=== PATIENT | male | born 1960 | race Caucasian/White ===

== ENCOUNTER 2019-05-31 12:41 | Day surgery (SDC) | payer OTHER ==
[~2019-05-31] VITALS: Ht 188 cm; Wt 102.1 kg
[2019-05-31 14:45] VITALS: BP 125/79
[2019-05-31 15:19] VITALS: BP 125/79
--- NOTE | 2019-06-14 15:34 | O ---
[facility] [place] [address] OPERATIVE REPORT Name: JEFF GONZALEZ Room #: [place] [facility] Christiano#: [id number] Admission: 05/31/19 Attend Phys: Indra Quigley Discharge: 05/31/19 Date of : 60 Report #: [id number] THIS REPORT FOR: //name// CC: Indra Nicholas Physician staff RIOS MILIAN DATE OF SERVICE: 05/31/2019 PREOPERATIVE DIAGNOSIS: Right shoulder pectoralis major tear. POSTOPERATIVE DIAGNOSIS: Right shoulder pectoralis major tear. PROCEDURE PERFORMED: Open right pectoralis major tendon repair. SURGEON: Indra Nicholas MD NAPPER TENDER: Chasity Mccann PA-C. ANESTHESIA: General with preoperative ultrasound-guided supraclavicular block. FLUIDS: 300 mL crystalloid. ESTIMATED BLOOD LOSS: Less than 25 mL. IMPLANTS UTILIZED: Arthrex pectoralis major implant repair system with three large islets. DESCRIPTION OF PROCEDURE: After proper identification of the patient and operative site in preoperative holding area, the operative site was signed by myself. Prophylactic antibiotics given. The patient elected to receive a block after reviewing the risks, benefits, alternatives and potential complications with Dr. Yoon. After satisfactory ultrasound-guided block, the patient was brought back to the operative suite after induction of satisfactory general anesthesia per LMA, Dr. Yoon noted stable airway. The head of bed was elevated slightly, arm board was utilized and a small bump was placed under the right scapula. The right shoulder and chest was then sterilely prepped and draped in usual manner. Final draping was with Ioban. A deltopectoral approach was planned and the skin was incised sharply. Full thickness skin flaps were developed and the patient's retracted end of what appeared to be primarily the sternal border of the pectoralis was able to be palpable exteriorly after the deltopectoral interval was opened. A small amount of fluid was noted and the clavipectoral fascia was then easily fall on to retracted tendon stump. There was some maceration of the edges both superiorly and inferiorly. Some tightness and retraction of the muscle belly was noted, but under direct visualization this retracted muscle belly stump was easily identified with a small tendinous [facility] [address] [place] [address] OPERATIVE REPORT Name: JEFF GONZALEZ Room #: [place] [facility] Magdi.#: [id number] Admission: 05/31/19 Attend Phys: Indra Quigley Discharge: 05/31/19 Date of : 60 Report #: [id number] portion. Three FiberTapes were passed in more of a whipstitch type manner under direct observation to secure this tear. There appeared to be a small portion of the more clavicular head, still attached to the humerus and the edge of the tendon stump was identified just lateral to the biceps tendon. Blunt retractors were used to retract the deltoid. Great care was taken to avoid any undue pressure on the neurovascular structures. Cortex and the insertion of the pectoralis major were identified. Three drill holes were then placed and the large islet buttons were then placed over the FiberTapes and positioned past the near cortex toggled and these were sequentially tightened. The arm was then adducted in internally rotated position and with sequential tightening the pectoralis major was able to be delivered down to the bone. These were then tied and then cut, nicely reducing the footprint of the sternal portion of the pectoralis major. Again, some maceration of the tendon edges was noted superiorly and inferiorly, but this appeared to be decent quality tendon as tissue for the repair. The wound was thoroughly irrigated with normal saline. The pectoralis had been restored in its anatomic position and 1 gram of vancomycin powder was utilized, half at deep, half at more superficial. Deltopectoral closure ensued with a #1 Vicryl closing the deeper tissues, 2-0 Vicryl for the more subcutaneous tissues followed by running Monocryl, sealed with Dermabond. Sterile dressing was applied. He was placed in a sling postoperatively, which will be utilized for 6 weeks. Qualified diver assistant utilized throughout the entire procedure to aid in patient limb positioning, visualization and retraction of soft tissues, instrument passage, closure and sling application. <ELECTRONICALLY SIGNED> By: Indra Nicholas MD 06/14/19 1534 [id number] 1529 Indra Nicholas MD /nt
== END 2019-05-31 16:00 | disposition home or self-care (01) ==
LOC: TBA 12:41 → OR 12:41 → TBA 12:48 → OR 16:00
DX: S46.811A Strain of other muscles, fascia and tendons at shoulder and upper arm level, right arm, initial encounter (principal); Z98.890 Other specified postprocedural states; Z85.01 Personal history of malignant neoplasm of esophagus; Z79.899 Other long term (current) drug therapy; X58.XXXA Exposure to other specified factors, initial encounter; Y93.89 Activity, other specified; Y92.89 Other specified places as the place of occurrence of the external cause; Y99.8 Other external cause status
CPT/HCPCS: 50010; 50101; 50386; 50417; 50935; 52138; 54118; 55430; 56525; 56526; 62110; 62900; 64043; 65060; 70005

== ENCOUNTER → 2020-01-19 | Day surgery (SDC) | payer OTHER ==
[~2020-01-19] VITALS: Ht 188 cm; Wt 102.1 kg
[~2020-01-19] MED LIST: ADVIL200 M1 PO; CLINDAMYCIN HC300 MG PO; DEXTROAMP-AMPHE20 MG PO; EZETIMIBE10 MG PO; FLUTICASONE PRO16 GM NASAL; GLUCOSAMINE &1 EACH PO; LEVOTHYROXINE75 MCG PO; MAGNESIUM COMPLEX; MULTIVITAMINS1 EAC7 PO; ROSUVASTATIN CA10 MG PO; TESTOSTERONE75 G1 TOP
[2020-01-19 10:40] VITALS: BP 124/74
[2020-01-19 12:26] VITALS: BP 124/74
--- NOTE | 2020-01-24 13:10 | O ---
[facility] [place] [address] OPERATIVE REPORT Name: JEFF GONZALEZ Room #: [facility] Magdi.#: [id number] Admission: 01/19/20 Attend Phys: Indra Quigley Discharge: Date of : 60 Report #: [id number] THIS REPORT FOR: cc: RIOS MILIAN Physician not on staff Indra Nicholas MD ~ CC: Indra Nicholas Physician staff RIOS MILIAN DATE OF SERVICE: 01/19/2020 PREOPERATIVE DIAGNOSES: Right shoulder pain, abscess formation, history of the pectoralis major repair. POSTOPERATIVE DIAGNOSES: Right shoulder pain, abscess formation, history of the pectoralis major repair. PROCEDURE PERFORMED: Irrigation and debridement of right shoulder abscess. SURGEON: Indra Nicholas MD PHOSPHATIC FERTILIZER SUPERVISOR: Chasity Mccann PA-C. ANESTHESIA: General. FLUIDS: 300 mL crystalloid. ESTIMATED BLOOD LOSS: 5 mL. SPECIMENS: Right shoulder abscess culture and sensitivities. DESCRIPTION OF PROCEDURE: After proper identification of the patient and operative site in preoperative holding area, the operative site was signed by myself, prophylactic antibiotics had been started in the office. We discussed the recurrent infection about his shoulder and treatment options. He wished to proceed with the above. He was brought back to the operative suite and after induction of satisfactory general anesthesia per LMA, right shoulder was sterilely prepped and draped in the usual manner. The patient noted that yesterday his abscess was opened and drained and there was a small area of opening in the skin approximately 2-3 mm with some surrounding fluctuance and firmness of the subcutaneous tissues. Otherwise, the compartments were soft. After sterile prep and drape, the previous incision was opened, friable skin tissue was debrided. Small amount of purulent fluid was able to be cultured and expressed. There is a small area that this abscess was able to be track up under the anterior deltoid. This did not appear to track medially into the [facility] [address] [place] [address] OPERATIVE REPORT Name: JEFF GONZALEZ Room #: REG [facility].#: [id number] Admission: 01/19/20 Attend Phys: Indra Quigley Discharge: Date of : 60 Report #: [id number] chest or extend more superiorly up into the shoulder. Any friable tissue was debrided sharply through the skin, subcutaneous layers down to the fascia. This area was mechanically debrided with a sponge and antibiotic irrigant with pulsatile lavage was used to thoroughly irrigate these tissues. Superior portion of the incision was left open with the inferior part closed and 1/2 inch iodoform gauze was then packed into this small cavity and remaining open part of the incision. Sterile dressing was applied. The patient was awakened and transferred to the recovery room in stable condition. We will plan on changing his packing in approximately 3 days in the office. Postoperative cultures, I will dictate his antibiotics and we reviewed the potential need to have an Infectious Disease specialist as well. <ELECTRONICALLY SIGNED> By: Indra Nicholas MD 01/24/20 1310 1156 1252 Indra Nicholas MD /nt
== END | disposition home or self-care (01) ==
LOC: OR 10:00
PROVIDERS: ATTEND Orthopaedic Surgery Sports Medicine
DX: M25.511 Pain in right shoulder (principal); M75.81 Other shoulder lesions, right shoulder; S29.011A Strain of muscle and tendon of front wall of thorax, initial encounter; Z11.59 Encounter for screening for other viral diseases; Z82.49 Family history of ischemic heart disease and other diseases of the circulatory system; Z79.899 Other long term (current) drug therapy; X58.XXXA Exposure to other specified factors, initial encounter; Y93.89 Activity, other specified; Y92.89 Other specified places as the place of occurrence of the external cause; Y99.8 Other external cause status
CPT/HCPCS: 50010; 50101; 50172; 50386; 50417; 53078; 56527; 57103; 62110; 62900; 70005

== ENCOUNTER → 2020-02-22 | Outpatient (CLI) | payer OTHER ==
[~2020-02-22] MED LIST changes: +GABAPENTIN 100100 MG PO
== END ==
LOC: LAB 09:59
PROVIDERS: ATTEND Student in an Organized Health Care Education/Training Program
DX: Z01.818 Encounter for other preprocedural examination (principal); Z11.59 Encounter for screening for other viral diseases

== ENCOUNTER 2020-02-23 08:42 | Day surgery (SDC) | payer OTHER ==
[~2020-02-23] VITALS: Ht 188 cm; Wt 102.1 kg
--- NOTE | ~2020-02-23 | O ---
[facility] [place] [address] OPERATIVE REPORT Name: JEFF GONZALEZ Room #: 150-5 [facility] M.Won.#: [id number] Admission: 02/23/20 Attend Phys: Indra Quigley Discharge: Date of : 60 Report #: [id number] THIS REPORT FOR: cc: RIOS MILIAN Physician not on staff Indra Nicholas MD ~ CC: Indra Nicholas Physician staff RIOS MILIAN DATE OF SERVICE: 02/23/2020 PREOPERATIVE DIAGNOSIS: Right anterior shoulder/pectoralis wound/abscess. POSTOPERATIVE DIAGNOSIS: Right anterior shoulder/pectoralis wound/abscess. PROCEDURE PERFORMED: Right anterior shoulder/pectoralis wound irrigation and debridement. SURGEON: Indra Nicholas MD ANESTHESIA: General per LMA. FLUIDS: 1 liter crystalloid. ESTIMATED BLOOD LOSS: Approximately 5 mL. SPECIMENS: Right shoulder wound culture and sensitivity. DESCRIPTION OF PROCEDURE: After proper identification of the patient and operative site in preoperative holding area, the operative site was signed by myself. Prophylactic antibiotics. The patient has been on antibiotics and has had continued draining drainage from his wound. The patient has recently undergone an irrigation and debridement of an abscess. He was brought back to the operative suite after induction of satisfactory general anesthesia. The right anterior chest and shoulder was sterilely prepped and draped in the usual manner. The patient had a small opening approximately 8 mm of his shoulder. There is some granulation tissue/fatty tissue that had prolapsed out his small wound. There was a small amount of drainage noted on his Band-Aid with prep, but yesterday, the patient noted purulent drainage. This granulation/fatty tissue was then incised sharply. There was a small tract that went slightly medial and cephalad, no extension under the deltoid area was noted. No axillary extension. This area was then curetted using a hemostat. A 4 x 4 was used to debride the tissue as well as rongeur. A small portion of the skin was debrided superiorly, but they were clean borders. This was thoroughly irrigated with antibiotic irrigant and debrided and then 1/4-inch iodoform gauze was packed [address] [address] OPERATIVE REPORT Name: JEFF GONZALEZ Room #: 150-5 [facility] M.R.#: [id number] Admission: 02/23/20 Attend Phys: Indra Quigley Discharge: Date of : 60 Report #: [id number] into this wound, which had a depth approximately 2 to 2.5 cm. Sterile dressing was applied. He was then awakened and transferred to the recovery room in stable condition. Postoperatively, we reviewed having him see an Infectious Disease specialist as well to see if they have any other recommendations regarding antibiotic choice. He will follow up in my office next week for packing removal and repeat examination of the wound. By: 1229 1242 Indra Nicholas MD /dax
[2020-02-23 10:49] VITALS: BP 141/82
[2020-02-23 12:51] VITALS: BP 141/82
== END 2020-02-23 13:15 | disposition home or self-care (01) ==
LOC: TBA 08:42 → OR 08:42
PROVIDERS: ATTEND Orthopaedic Surgery Sports Medicine
DX: T81.42XA Infection following a procedure, deep incisional surgical site, initial encounter (principal); M25.511 Pain in right shoulder; E03.9 Hypothyroidism, unspecified; E78.5 Hyperlipidemia, unspecified; G47.30 Sleep apnea, unspecified; Z98.890 Other specified postprocedural states; Z79.899 Other long term (current) drug therapy; Z85.01 Personal history of malignant neoplasm of esophagus; Y83.8 Other surgical procedures as the cause of abnormal reaction of the patient, or of later complication, without mention of misadventure at the time of the procedure
CPT/HCPCS: 50010; 50101; 50386; 50417; 62110; 62900; 70005

== ENCOUNTER → 2020-04-19 | Outpatient (CLI) | payer OTHER ==
[~2020-04-19] MED LIST changes: +MAGNESIUM250 M1 PO
== END ==
LOC: HYPER 08:31
PROVIDERS: ATTEND Emergency Medicine Emergency Medical Services
DX: T81.49XA Infection following a procedure, other surgical site, initial encounter (principal); L02.411 Cutaneous abscess of right axilla; L03.111 Cellulitis of right axilla; B95.62 Methicillin resistant Staphylococcus aureus infection as the cause of diseases classified elsewhere; G47.30 Sleep apnea, unspecified; Z85.01 Personal history of malignant neoplasm of esophagus; Y83.8 Other surgical procedures as the cause of abnormal reaction of the patient, or of later complication, without mention of misadventure at the time of the procedure; Y92.238 Other place in hospital as the place of occurrence of the external cause

== ENCOUNTER 2020-04-22 14:07 | Day surgery (SDC) | payer OTHER ==
[~2020-04-22] VITALS: Ht 188 cm; Wt 100.2 kg
[2020-04-22 14:44] VITALS: BP 127/80
[2020-04-22 17:16] VITALS: BP 127/80
--- NOTE | 2020-04-24 10:34 | O ---
[facility] [place] [address] OPERATIVE REPORT Name: JEFF GONZALEZ Room #: DEP [facility] Christiano#: [id number] Admission: 04/22/20 Attend Phys: Indra Quigley Discharge: 04/22/20 Date of : 60 Report #: [id number] THIS REPORT FOR: cc: RIOS MILIAN Physician not on staff Indra Nicholas MD ~ CC: Indra Nicholas Physician staff RIOS MILIAN DATE OF SERVICE: 04/22/2020 PREOPERATIVE DIAGNOSIS: Right shoulder infection of the pectoralis major wound with retained and exposed FiberTape suture. POSTOPERATIVE DIAGNOSIS: Right shoulder infection of the pectoralis major wound with retained and exposed FiberTape suture. PROCEDURE PERFORMED: Right shoulder pectoralis major wound irrigation and debridement. SURGEON: Indra Nicholas MD GREEN MARKETER: Mary Ann Vang. ANESTHESIA: General per LMA. FLUIDS: 400 mL crystalloid. ESTIMATED BLOOD LOSS: 15 mL. SPECIMENS: Culture and sensitivity of right pectoralis major wound. DESCRIPTION OF PROCEDURE: After proper identification of the patient and operative site in preoperative holding area, the operative site was signed by myself. Prophylactic antibiotics given. The patient has been seen in the Wound Clinic by Dr. Fernando Crawford and exposed suture was noted. We discussed treatment plan including a repeat irrigation and debridement with packing with iodoform gauze and follow up with Dr. Crawford Wednesday of this week for repacking and continued wound care. The patient was agreeable to this with continued antibiotics per his Infectious Disease, Dr. Hudson and Dr. Salas Lozano. The patient was brought back to the operative suite after the operative site was identified. After induction of satisfactory general anesthesia per LMA, the right shoulder was sterilely prepped and draped in the usual manner. The patient had an approximate 2-inch long piece of retained suture that was able to be removed in its entirety. The inferior edge of the pectoralis major tendon [address] [address] OPERATIVE REPORT Name: JEFF GONZALEZ Room #: DEP [facility] Christiano#: [id number] Admission: 04/22/20 Attend Phys: Indra Quigley Discharge: 04/22/20 Date of : 60 Report #: [id number] was carefully debrided. There was a tract that went from the anterior head of the deltoid along the more inferior margin of the pectoralis major. Otherwise, the pectoralis major tendon appeared to be well secured to the humerus. There appeared to be no obvious fluid collections. This tract was carefully debrided. Skin edges were ellipsed. The incision was enlarged. A small amount of subcutaneous fat was also debrided in this area. After mechanical debridement, it was thoroughly irrigated with antibiotic irrigant and then packed with iodoform gauze. Sterile dressing was applied. The wound had been opened to approximately an inch and quarter and was left open to facilitate in removal and repacking of his wound. A sterile dressing was applied. He was awakened and transferred to the recovery room in stable condition. <ELECTRONICALLY SIGNED> By: Indra Nicholas MD 04/24/20 1034 1708 1853 Indra Nicholas MD /nt
== END 2020-04-22 17:16 | disposition home or self-care (01) ==
LOC: OR 14:07 → TBA 14:11 → OR 17:16
PROVIDERS: ATTEND Orthopaedic Surgery Sports Medicine
DX: T81.49XA Infection following a procedure, other surgical site, initial encounter (principal); T81.89XA Other complications of procedures, not elsewhere classified, initial encounter; M25.511 Pain in right shoulder; S41.001A Unspecified open wound of right shoulder, initial encounter; A49.02 Methicillin resistant Staphylococcus aureus infection, unspecified site; E78.5 Hyperlipidemia, unspecified; E03.9 Hypothyroidism, unspecified; G47.30 Sleep apnea, unspecified; Z98.890 Other specified postprocedural states; Z79.899 Other long term (current) drug therapy; Z85.01 Personal history of malignant neoplasm of esophagus; X58.XXXA Exposure to other specified factors, initial encounter; Y93.89 Activity, other specified; Y92.89 Other specified places as the place of occurrence of the external cause; Y99.8 Other external cause status; Y83.8 Other surgical procedures as the cause of abnormal reaction of the patient, or of later complication, without mention of misadventure at the time of the procedure
CPT/HCPCS: 50010; 50101; 50386; 50417; 57103; 62110; 62900; 70005

== ENCOUNTER → 2020-04-22 | Outpatient (CLI) | payer OTHER | LOC: LAB 07:32 | PROVIDERS: ATTEND Orthopaedic Surgery Sports Medicine | DX: Z01.812 Encounter for preprocedural laboratory examination (principal); Z20.828 Contact with and (suspected) exposure to other viral communicable diseases ==

== ENCOUNTER → 2020-04-26 | Outpatient (CLI) | payer OTHER | LOC: HYPER 08:27 | PROVIDERS: ATTEND Emergency Medicine | DX: T81.49XD Infection following a procedure, other surgical site, subsequent encounter (principal); L02.411 Cutaneous abscess of right axilla; L03.111 Cellulitis of right axilla; B95.62 Methicillin resistant Staphylococcus aureus infection as the cause of diseases classified elsewhere; G47.30 Sleep apnea, unspecified; Z85.01 Personal history of malignant neoplasm of esophagus; Y83.8 Other surgical procedures as the cause of abnormal reaction of the patient, or of later complication, without mention of misadventure at the time of the procedure ==

== ENCOUNTER → 2020-04-29 | Outpatient (CLI) | payer OTHER | LOC: HYPER 08:42 | PROVIDERS: ATTEND Emergency Medicine Emergency Medical Services | DX: T81.49XD Infection following a procedure, other surgical site, subsequent encounter (principal); L98.492 Non-pressure chronic ulcer of skin of other sites with fat layer exposed; L03.111 Cellulitis of right axilla; L02.411 Cutaneous abscess of right axilla; A49.02 Methicillin resistant Staphylococcus aureus infection, unspecified site; E07.89 Other specified disorders of thyroid; G47.30 Sleep apnea, unspecified; Z85.01 Personal history of malignant neoplasm of esophagus; Y83.8 Other surgical procedures as the cause of abnormal reaction of the patient, or of later complication, without mention of misadventure at the time of the procedure ==

== ENCOUNTER → 2020-05-06 | Outpatient (CLI) | payer OTHER | LOC: HYPER 08:22 | PROVIDERS: ATTEND Emergency Medicine | DX: T81.49XD Infection following a procedure, other surgical site, subsequent encounter (principal); L98.492 Non-pressure chronic ulcer of skin of other sites with fat layer exposed; L02.411 Cutaneous abscess of right axilla; L03.111 Cellulitis of right axilla; A49.02 Methicillin resistant Staphylococcus aureus infection, unspecified site; E07.89 Other specified disorders of thyroid; E66.9 Obesity, unspecified; G47.30 Sleep apnea, unspecified; Z85.01 Personal history of malignant neoplasm of esophagus; Z68.28 Body mass index [BMI] 28.0-28.9, adult; Y83.8 Other surgical procedures as the cause of abnormal reaction of the patient, or of later complication, without mention of misadventure at the time of the procedure ==

== ENCOUNTER → 2020-05-13 | Outpatient (CLI) | payer OTHER | LOC: HYPER 09:26 | PROVIDERS: ATTEND Emergency Medicine | DX: T81.49XD Infection following a procedure, other surgical site, subsequent encounter (principal); L98.492 Non-pressure chronic ulcer of skin of other sites with fat layer exposed; L02.411 Cutaneous abscess of right axilla; L03.111 Cellulitis of right axilla; B95.62 Methicillin resistant Staphylococcus aureus infection as the cause of diseases classified elsewhere; G47.30 Sleep apnea, unspecified; Z85.01 Personal history of malignant neoplasm of esophagus; Y83.8 Other surgical procedures as the cause of abnormal reaction of the patient, or of later complication, without mention of misadventure at the time of the procedure ==

== ENCOUNTER → 2020-05-27 | Outpatient (CLI) | payer OTHER | LOC: HYPER 15:28 | PROVIDERS: ATTEND Emergency Medicine | DX: T81.49XD Infection following a procedure, other surgical site, subsequent encounter (principal); L98.492 Non-pressure chronic ulcer of skin of other sites with fat layer exposed; L03.111 Cellulitis of right axilla; L02.411 Cutaneous abscess of right axilla; A49.02 Methicillin resistant Staphylococcus aureus infection, unspecified site; E07.89 Other specified disorders of thyroid; E66.9 Obesity, unspecified; G47.30 Sleep apnea, unspecified; Z85.01 Personal history of malignant neoplasm of esophagus; Z68.28 Body mass index [BMI] 28.0-28.9, adult; Y83.8 Other surgical procedures as the cause of abnormal reaction of the patient, or of later complication, without mention of misadventure at the time of the procedure ==